=== PATIENT | male | born 1980 | race Caucasian/White ===

== ENCOUNTER 2022-12-13 10:30 | Emergency (ER) | payer OTHER, SELFPAY ==
[2022-12-13] VITALS (7 sets, daily range): BP systolic 128–140; BP diastolic 79–108; PULSE 69–80; RESP 11–22; TEMP 36.7; O2SAT 97–100
--- NOTE | 2022-12-13 10:40 | ED.ALLEREA ---
HPI - Allergic Reaction General Chief complaint: Allergic Reaction Stated complaint: stung by bee, allergic reaction Time Seen by Provider: 12/13/22 10:40 Source: patient and family Mode of arrival: ambulatory Limitations: no limitations History of Present Illness HPI narrative: Patient is 42 years old white male came to the emergency room with right ankle pain/allergic reaction after being stung by a bee 1 hour ago. He denies any shortness of breath, difficulty breathing difficulty swallowing. Currently complaining of sore throat and dry mouth, did not receive any medication prior to arrival. Related Data Allergies Allergy/AdvReac Type Severity Reaction Status Date / Time Honey Bee Allergy Anaphylaxis Uncoded 12/13/22 10:44 Paper Wasp Allergy Anaphylaxis Uncoded 12/13/22 10:44 Review of Systems Review of Systems: All systems reviewed & are unremarkable except as noted in HPI and below Exam Narrative: General appearance: Well-developed, well-nourished Skin: Normal color Head: Normocephalic, nontraumatic Eyes: Clear conjunctiva ENT: Oropharynx normal, ears normal, nose normal Neck: Supple, nontender Chest and respiratory: Airway patent, no respiratory distress, no accessory muscle use Heart: Regular rate/rhythm Abdomen: Soft, nontender, no organomegaly, quiet bowel sounds Vascular: Normal peripheral pulses, normal capillary refill. Musculoskeletal: Normal range of motion, nontender back Neurologic: Alert and oriented ?3, [employer] is normal as tested, no gross motor deficit Course Course Emergency Course: Improving Reevaluation(s) Reevaluation #1: Remarkable improvement after IV Benadryl, Solu-Medrol and 0.3 mg of epinephrine IM. Date: 12/13/22 Time: 13:58 Vital Signs Vital signs: Vital Signs Temperature 36.7 C 12/13/22 10:38 Pulse Rate 72 12/13/22 10:38 Respiratory Rate 18 12/13/22 10:38 Blood Pressure 137/108 H 12/13/22 10:38 Pulse Oximetry 99 12/13/22 10:38 Oxygen Delivery Room Air 12/13/22 10:38 Temperature 36.7 C 12/13/22 10:38 Pulse Rate 69 12/13/22 12:34 Respiratory Rate 16 12/13/22 12:34 Blood Pressure 128/87 12/13/22 12:34 Pulse Oximetry 97 12/13/22 12:34 Oxygen Delivery Room Air 12/13/22 10:38 MDM - Allergic Reaction MDM Narrative Medical decision making narrative: Patient presents with allergic reaction to bee sting. Denies any shortness of breath or difficulty breathing, hemodynamically stable, IV Solu-Medrol 125 mg, 50 mg of Benadryl IV, 1.3 mg of epinephrine IM given with remarkable improvement. Patient to be discharged on prednisone. Differential Diagnosis Differential diagnosis: Likely allergic reaction and urticaria Critical Care Time Critical Care Time Critical Care Time: Yes Total Critical Care Time: 25 Discharge Plan Discharge Clinical Impression: Allergic reaction Qualifiers: Encounter type: initial encounter Qualified Code(s): T78.40XA - Allergy, unspecified, initial encounter Patient Disposition: Home, Self-Care Condition: Stable Instructions: Antibiotic Form, Insect Bite or Sting (ED) Additional Instructions: Return if symptoms are worsening , call your family physician for appointment, take Tylenol as as needed for aches and pain, continue home medications. Take Benadryl 50 mg every 6 hours as needed Prescriptions: New prednisone 20 mg tablet 40 mg PO DAILY 5 Days Qty: 10 0RF Follow-up/Referrals: PHYSICIAN,TRAIN DISPATCHER [Primary Care Provider] - Sal Andrews MD [Physician] - 12/16/22 Stand Alone Forms: Work/School Release IP
[2022-12-13] MEDS: diphenhydrAMINE HCl INJ 50 MG/ML VIAL IV PUSH (10:42)
[2022-12-13] MEDS: EPINEPHrine HCL INJ 1 MG/ML AMPUL 0.3 MG IM (10:42)
[2022-12-13] MEDS: methylPREDNISolone SOD SUCC 125 MG VIAL IV PUSH (10:42)
== END 2022-12-13 12:35 | disposition home or self-care (01) ==
PROVIDERS: Emergency Provider Emergency Medicine
DX: T63.441A Toxic effect of venom of bees, accidental (unintentional), initial encounter (principal); J02.9 Acute pharyngitis, unspecified
CPT/HCPCS: 96372; 96374; 96375; 99284; J0171; J1200; J2930